=== PATIENT | male | born 1980 | race Caucasian/White ===

== ENCOUNTER 2019-09-06 15:24 | Emergency (ER) | payer OTHER ==
--- NOTE | 2019-09-06 15:47 | EDM.PDOC ---
ED HPI GENERAL MEDICAL PROBLEM - General Chief Complaint: Lower Extremity Injury/Pain Stated Complaint: INJURY LEFT KNEE Time Seen by Provider: 09/06/19 15:42 Source of Information: Reports: Patient History Limitations: Reports: No Limitations - History of Present Illness INITIAL COMMENTS - FREE TEXT/NARRATIVE: HISTORY AND PHYSICAL: History of present illness: Patient is a 38-year-old male presents to the ED with complaint of left knee injury. Patient states 2 days ago he was kneeling down and when he went to stand up he had all of the weight on his left leg and felt a pop and a tear in the knee. He states he has been icing, elevating, and taking motrin without relief. He is unable to bear weight and has been using crutches to get around. Patient heart rate 133 in ED. He denies chest pain or shortness of breath. States he did feel like his heart was racing this morning after having trouble trying to get in and out of the shower secondary to the knee pain. Review of systems: As per history of present illness and below otherwise all systems reviewed and negative. Past medical history: As per history of present illness and as reviewed below otherwise noncontributory. Surgical history: As per history of present illness and as reviewed below otherwise noncontributory. Social history: No reported history of drug or alcohol abuse. Family history: As per history of present illness and as reviewed below otherwise noncontributory. Physical exam: General: Patient sitting comfortably in no acute distress and nontoxic appearing HEENT: Atraumatic, normocephalic, pupils reactive, negative for conjunctival pallor or scleral icterus, mucous membranes moist, throat clear, neck supple, nontender, trachea midline. No meningeal signs. Lungs: Clear to auscultation, breath sounds equal bilaterally, chest nontender. Heart: S1S2, regular, negative for clicks, rubs, or overt murmur. Abdomen: Soft, nondistended, nontender. Negative for masses or hepatosplenomegaly. Negative for costovertebral tenderness. No rigidity, rebound , guarding. Pelvis: Stable nontender. Genitourinary: Deferred. Rectal: Deferred. Extremities: left knee is minimally swollen. Pain to palpation of the lateral and posterior knee. negative for cords or calf pain. Neurovascular unremarkable. Neuro: Awake, alert, oriented. Cranial nerves II through XII unremarkable. Cerebellum unremarkable. Motor and sensory unremarkable throughout. Exam nonfocal. Notes: Patient HR is 120 at discharge. EKG shows sinus tachycardia. Patient declines IV and labs. He was advised to follow up with PCP regarding tachycardia. Diagnostics: x-ray left knee, EKG Therapeutics: Toradol 60mg IM Prescriptions: diclofenac Impression: Left knee injury Plan: 1. Ice, elevate, and motrin or tylenol as needed 2. Follow up with orthopedics, please call the number provided to schedule an appointment 3. Return to ED as needed as discussed Definitive disposition and diagnosis as appropriate pending reevaluation and review of above. Left Knee Pain Score (Numeric/FACES): 7 - Related Data Allergies Allergy/AdvReac Type Severity Reaction Status Date / Time codeine Allergy vomit Verified 09/06/19 15:45 Home Meds: Home Meds Albuterol Sulfate [Albuterol Sulfate Hfa] 2 puff IH ASDIRECTED 09/06/19 [History ] Diclofenac Sodium [Voltaren] 75 mg PO BIDMEALS #20 tab.cr 09/06/19 [Rx] Review of Systems - Review of Systems Review Of Systems: Comprehensive ROS is negative, except as noted in HPI. ED EXAM, GENERAL - Physical Exam Exam: See Below (see dictation) Course - Vital Signs Last Recorded V/S: Last Vital Signs Temp 98.8 F 09/06/19 17:09 Pulse 120 H 09/06/19 17:09 Resp 18 09/06/19 17:09 BP 134/74 09/06/19 17:09 Pulse Ox 98 09/06/19 17:09 - Orders/Labs/Meds Orders: Active Orders 24 hr Category Date Time Status EKG Documentation Completion [RC] STAT Care 09/06/19 15:45 Ordered DME for Discharge [COMM] Stat Oth 09/06/19 16:42 Ordered Meds: Medications Discontinued Medications Generic Name Dose Route Start Last Admin Trade Name Freq PRN Reason Stop Dose Admin Ketorolac Tromethamine 60 mg 09/06/19 16:12 09/06/19 17:13 Toradol IM 09/06/19 16:13 60 mg ONETIME ONE Administration Departure - Departure Time of Disposition: 16:38 Disposition: Home, Self-Care 01 Condition: Good Clinical Impression: Left knee injury - Discharge Information Prescriptions: Diclofenac Sodium [Voltaren] 75 mg PO BIDMEALS #20 tab.cr Instructions: Acute Knee Pain, Adult, [id number] Referrals: PCP,None [Primary Care Provider] - Dontrell Silva DO [Physician] - 3 Days Forms: ED Department Discharge Additional Instructions: The following information is given to patients seen in the emergency department who are being discharged to home. This information is to outline your options for follow-up care. We provide all patients seen in our emergency department with a follow-up referral. The need for follow-up, as well as the timing and circumstances, are variable depending upon the specifics of your emergency department visit. If you don't have a primary care physician on staff, we will provide you with a referral. We always advise you to contact your personal physician following an emergency department visit to inform them of the circumstance of the visit and for follow-up with them and/or the need for any referrals to a consulting specialist. The emergency department will also refer you to a specialist when appropriate. This referral assures that you have the opportunity for follow-up care with a specialist. All of these measure are taken in an effort to provide you with optimal care, which includes your follow-up. Under all circumstances we always encourage you to contact your private physician who remains a resource for coordinating your care. When calling for follow-up care, please make the office aware that this follow-up is from your recent emergency room visit. If for any reason you are refused follow-up, please contact the [facility] Emergency Department at and asked to speak to the emergency department charge nurse. [facility] Specialty Care - Orthopedic [facility] Professional Building [address] [place] [address], [address] [place] [address] 1. Ice, elevate, and take diclofenac as instructed. You may take tylenol as needed. 2. Follow up with orthopedics, please call the number provided to schedule an appointment 3. Return to ED as needed as discussed Sepsis Event Note - Focused Exam Vital Signs: Vital Signs Temp Pulse Resp BP Pulse Ox 09/06/19 17:09 98.8 F 120 H 18 134/74 98 09/06/19 15:41 95.7 F L 136 H 20 164/92 H 96 Date Exam was Performed: 09/06/19 Time Exam was Performed: 17:20 - My Orders Last 24 Hours: My Active Orders 09/06/19 15:45 EKG Documentation Completion [RC] STAT 09/06/19 16:42 DME for Discharge [COMM] Stat - Assessment/Plan Last 24 Hours: My Active Orders 09/06/19 15:45 EKG Documentation Completion [RC] STAT 09/06/19 16:42 DME for Discharge [COMM] Stat
[2019-09-06] MEDS ORDERED: Ketorolac 60 MG/2 ML SDV IM ONE (16:12)
--- NOTE | 2019-09-06 16:32 | CR ---
Left knee: AP, lateral and sunrise patellar views left knee were obtained. Joint effusion is seen. Medial joint space minimally narrowed as compared to the lateral joint space. No discrete fracture or other bony abnormality is appreciated. Impression: 1. Minimal narrowing of the medial joint space. 2. Joint effusion. Diagnostic code #2 This report was dictated in MDT
== END 2019-09-06 17:50 | disposition home or self-care (01) ==
LOC: MW.ED 15:24
DX: S89.92XA Unspecified injury of left lower leg, initial encounter (principal); Z88.5 Allergy status to narcotic agent; Z79.899 Other long term (current) drug therapy; X58.XXXA Exposure to other specified factors, initial encounter
CPT/HCPCS: 73562; 93005; 96372; 99285; J1885; 99283